=== PATIENT | female | born 1990 | race Asian ===

== ENCOUNTER → 2016-06-21 | Outpatient (CLI) | payer BC ==
[~2016-06-21] MED LIST: PRENTAB26 PO
[2016-06-21 14:28] LABS: URINE APPEARANCE CLEAR (CLEAR); URINE BILIRUBIN NEG (NEG); URINE COLOR YELLOW; URINE NITRITE NEG (NEG); URINE PH 6.5 (4.5-7.5); URINE SPECIFIC GRAVITY 1.014 (1.000-1.030); UROBILINOGEN NEG (NEG)
[2016-06-21 14:42] LABS: MANUAL MICROSCOPIC REQUIRED? NO; REVIEW REQ? NO
== END | disposition home or self-care (01) ==
LOC: C.LABSPEC 13:37
PROVIDERS: ATTEND Obstetrics & Gynecology
DX: Z34.01 Encounter for supervision of normal first pregnancy, first trimester (principal)

== ENCOUNTER → 2016-06-28 | Outpatient (CLI) | payer BC ==
[2016-06-28 17:34] LABS: BASO % 0.3 %; BASO ABS # 0.02 K/uL (0-0.2); COMPLETE YES; EOS % 1.3 %; HEMATOCRIT 34.9 % (37-47); IG% 0.3 %; LYMPH % 12.6 %; LYMPH ABS # 0.95 K/uL (1.2-3.4); MEAN CELL VOLUME 86.8 fL (80-100); MEAN CORPUSCULAR HEMOGLOBIN 29.1 pg (25-34); MEAN CORPUSCULAR HGB CONC 33.5 g/dl (32-36); MEAN PLATELET VOLUME 9.9 fL (7.4-10.4); MONO % 10.1 %; NEUT % 75.4 %; PLATELET COUNT 243 K/uL (130-400); RED BLOOD COUNT 4.02 M/uL (4.2-5.4); WHITE BLOOD COUNT 7.54 K/uL (4.8-10.8)
[2016-07-06 19:52] LABS: CHLAMYDIA TRACH RNA*** NOT DETECTED (NOT DETECTED); GC (NEIS GONORRHOEAE)RNA** NOT DETECTED (NOT DETECTED)
== END | disposition home or self-care (01) ==
LOC: C.LAB1850 15:32
PROVIDERS: ATTEND Obstetrics & Gynecology
DX: Z34.01 Encounter for supervision of normal first pregnancy, first trimester (principal)

== ENCOUNTER → 2016-08-24 | Outpatient (CLI) | payer BC ==
[2016-08-24 18:17] LABS: GTGD 50 Grams
== END | disposition home or self-care (01) ==
LOC: C.LAB1850 13:09
PROVIDERS: ATTEND Obstetrics & Gynecology
DX: Z34.03 Encounter for supervision of normal first pregnancy, third trimester (principal)

== ENCOUNTER → 2016-11-09 | Outpatient (CLI) | payer BC ==
[2016-11-09 14:37] LABS: HEMATOCRIT 33.5 % (37-47)
[2016-11-09 15:02] LABS: URINE APPEARANCE CLEAR (CLEAR); URINE BILIRUBIN NEG (NEG); URINE COLOR YELLOW; URINE NITRITE NEG (NEG); URINE PH 6.5 (4.5-7.5); URINE SPECIFIC GRAVITY 1.011 (1.000-1.030); UROBILINOGEN NEG (NEG)
[2016-11-09 15:11] LABS: MANUAL MICROSCOPIC REQUIRED? NO; REVIEW REQ? YES
[2016-11-09 15:26] LABS: URINE EPITHELIAL CELL AUTO 0-5 /lpf (0-5)
[2016-11-09 18:59] LABS: GTGD 50 Grams
== END | disposition home or self-care (01) ==
LOC: C.LAB1850 12:13
PROVIDERS: ATTEND Obstetrics & Gynecology
DX: Z34.02 Encounter for supervision of normal first pregnancy, second trimester (principal)

== ENCOUNTER 2017-01-19 12:14 | Inpatient (IN) | payer BC ==
[~2017-01-19] VITALS: Ht 157.5 cm; Wt 68.5 kg
[2017-01-19 12:57] LABS: BASO % 0.1 %; BASO ABS # 0.01 K/uL (0-0.2); COMPLETE YES; EOS % 1.6 %; HEMATOCRIT 36.1 % (37-47); IG% 0.4 %; LYMPH % 12.4 %; LYMPH ABS # 0.93 K/uL (1.2-3.4); MEAN CELL VOLUME 91.4 fL (80-100); MEAN CORPUSCULAR HEMOGLOBIN 30.1 pg (25-34); MEAN PLATELET VOLUME 10.4 fL (7.4-10.4); MONO % 9.6 %; NEUT % 75.9 %; PLATELET COUNT 193 K/uL (130-400); RED BLOOD COUNT 3.95 M/uL (4.2-5.4); WHITE BLOOD COUNT 7.49 K/uL (4.8-10.8)
[2017-01-19] MEDS ORDERED: LACTATED RINGER'S 1000ML 1,000 ML IV PRN (13:02)
[2017-01-19] MEDS ORDERED: NIFEdipine 10 MG CAP PO STA (13:05)
[2017-01-19] MEDS ORDERED: PATIENT'S ALLERGY INFO NEEDS ENTERED SCH (13:15)
[2017-01-19 13:20] LABS: ALB/GLOB RATIO 0.7 (0.9-2); ALKALINE PHOSPHATASE 127 U/L (45-117); ALT/SGPT 14 U/L (12-78); AST/SGOT 10 U/L (15-37); BLOOD UREA NITROGEN 8 mg/dl (7-18); BUN/CREATININE RATIO 20.9 (10-20); CALCIUM 8.9 mg/dl (8.5-10.1); CARBON DIOXIDE 19 mmol/L (21-32); CHLORIDE 109 mmol/L (98-107); CREATININE 0.38 mg/dl (0.60-1.20); GLUCOSE 89 mg/dl (70-99); POTASSIUM 3.9 mmol/L (3.5-5.1); SODIUM 139 mmol/L (136-145)
[2017-01-19 13:30] VITALS: Ht 157.5 cm; Wt 68.5 kg
[2017-01-19] MEDS ORDERED: PRENTAB26 PO (13:48)
[2017-01-19] MEDS ORDERED: LACTATED RINGER'S 1000ML 500 ML IV PRN ×2 (14:29→21:23)
[2017-01-19] MEDS ORDERED: OXYTOCIN 30 UNITS/500ML NSS IV PRN (14:30)
[2017-01-19] MEDS: LACTATED RINGER'S 1000ML 1,000 ML IV SCH ×2 (14:56→23:08)
[2017-01-19] MEDS ORDERED: FENTANYL 2MCG/ML ROPIV 1.25MG/ML 100ML BAG EPI ONE (20:15)
[2017-01-19] MEDS ORDERED: BUPIVACAINE 0.25% 30 ML VIAL ONE (20:15)
[2017-01-19] MEDS ORDERED: EpHEDrine SULFATE INJ 50 MG/ML AMP ONE (20:15)
[2017-01-19] MEDS ORDERED: FENTANYL CITRATE INJ 50 MCG/1 ML 2 ML VIAL ONE (20:16)
[2017-01-19] MEDS ORDERED: NALOXONE HCL INJ 1 MG in SODIUM CHLORIDE 0.9% 1000ML 1,000 ML IV PRN ×4 (21:23)
[2017-01-19] MEDS ORDERED: ONDANSETRON INJ 2 MG/ML 2 ML VIAL IV PRN (21:30)
[2017-01-19] MEDS ORDERED: DiphenhydrAMINE HCL 50 MG/ML VIAL IV PRN (21:30)
[2017-01-19] MEDS ORDERED: FENTANYL 2MCG/ML ROPIV 1.25MG/ML 100ML BAG EPI PRN (21:30)
[2017-01-19] MEDS ORDERED: EpHEDrine SULFATE INJ 50 MG/ML AMP IV PRN (21:30)
[2017-01-19] MEDS ORDERED: NALBUPHINE HCL INJ 10 MG/ML AMP IV PRN (21:30)
[2017-01-19] MEDS ORDERED: NALOXONE HCL INJ 0.4 MG/1 ML VIAL/CARP IV PRN (21:30)
[2017-01-19] MEDS ORDERED: METOCLOPRAMIDE HCL INJ 20 MG in SODIUM CHLORIDE 0.9% 50ML 50 ML IV PRN (21:30)
[2017-01-19] MEDS ORDERED: PROMETHAZINE HCL INJ 25 MG in SODIUM CHLORIDE 0.9% 50ML 50 ML IV PRN (21:30)
[2017-01-20] MEDS ORDERED: CARBOPROST TROMETHAMINE 250 MCG/ML AMP ONE (07:08)
[2017-01-20] MEDS ORDERED: LANOLIN OINT EXT PRN ×2 (07:30)
[2017-01-20] MEDS ORDERED: CARBOPROST TROMETHAMINE 250 MCG/ML AMP IM ONE (07:30)
[2017-01-20] MEDS ORDERED: OXYTOCIN 30 UNITS/500ML NSS IV PRN (07:30)
[2017-01-20] MEDS ORDERED: HYDROCORTISONE ACETATE 25 MG SUPP PR PRN (07:30)
[2017-01-20] MEDS ORDERED: DIPHTHERIA/TETANUS/PERTUSSIS 0.5 ML SYR/VIAL IM. ONE (07:30)
[2017-01-20] MEDS ORDERED: BENZOCAINE 20% AER SPR 82.5 GM CAN EXT PRN (07:30)
[2017-01-20] MEDS ORDERED: ACETAMINOPHEN 325 MG TAB PO PRN (07:30)
[2017-01-20] MEDS ORDERED: OXYCODONE/ACETAMINOPHEN 5-325 TAB PO PRN (07:30)
[2017-01-20] MEDS ORDERED: SUPERCREAM 0.870 % 15GM JAR EXT PRN (07:30)
[2017-01-20] MEDS: DOCUSATE SODIUM 100 MG CAP PO SCH ×2 (08:00→19:46)
--- NOTE | 2017-01-20 08:08 | DELIVERY SUMMARY ---
DATE OF OPERATION: 01/20/2017 PREOPERATIVE DIAGNOSES: 1. Intrauterine at 38 weeks. 2. Gestational hypertension without proteinuria. POSTOPERATIVE DIAGNOSES: 1. Intrauterine at 38 weeks. 2. Gestational hypertension without proteinuria. 3. hemorrhage. PROCEDURES: 1. Pitocin augmentation. 2. Epidural anesthesia. 3. Amniotomy. 4. Normal spontaneous vaginal delivery. 5. Third degree perineal laceration with repair. SURGEON: Ann Justice MD. ANESTHESIA: Epidural. ESTIMATED BLOOD LOSS: 700 mL. DESCRIPTION OF PROCEDURE: The patient presented to labor and delivery with admit pressure of 160s/100s. She was treated with oral nifedipine and her pressures came down but decision was made given gestational hypertension after 37 weeks to proceed with induction. An attempt to place Arriaga bulb was unsuccessful as it just kept slipping out. Originally she was 1 and now was 3 and 50%. Pitocin augmentation was initiated. She then underwent an epidural anesthesia and eventually an amniotomy for clear fluid. She progressed to complete, complete and +2 station. She pushed over 2 hours to deliver a viable female in JOS[place] MANUEL presentation. The nose and mouth were bulb suctioned and the rest of the was then delivered without difficulty. There was no nuchal cord. The cord was immediately clamped and cut. The was placed on the maternal abdomen. Cord blood was then obtained for collection. A third-degree perineal laceration was identified. The vagina and cervix were intact as well as the rectum. The third-degree perineal laceration was repaired with 2-0 and 3-0 Vicryl in normal standard fashion. Unfortunately, the patient continued to bleed and a manual exploration of the uterus was required with return of very little clot and the uterus was noted to be fairly firm. Then reexamination of the laceration found that it had partially broken down probably from my exploration of the uterus and so the incision was then reapproximated with 3-0 Vicryl. Once this was performed, then hemostasis was noted to be excellent. I suspect that most of the bleeding was from the laceration. Estimated blood loss is 700 mL. Apgars were 8 and 9. Mother and the baby doing well at the end of the delivery. I attest to the content of the Intraoperative Record and any orders documented therein. Any exception s are noted below.
--- NOTE | 2017-01-20 09:00 | Anesthesia Procedure Note ---
Anesthesia Epidural Removal Nt Date & Time Jan 20, 2017 at 09:00 Vital Signs Pain Intensity: 0.0 Notes Mental Status: alert / awake / arousable, participated in evaluation Nausea / Vomiting: adequately controlled Pain: adequately controlled Airway Patency, RR, SpO2: stable & adequate BP & HR: stable & adequate Hydration State: stable & adequate Neuraxial Anesthesia: was administered Anesthetic Complications: no major complications apparent, pt satisfied with anesthetic care Epidural: removed without complications, with tip intact
[2017-01-20] MEDS: IBUPROFEN 600 MG TAB PO PRN (09:20)
[2017-01-20] MEDS: PRENATAL VITAMIN TAB PO SCH (09:20)
[2017-01-20 10:30] VITALS: BP 126/81; PULSE 89; TEMP 37
[2017-01-20 12:00] VITALS: BP 122/87; PULSE 96; TEMP 37
[2017-01-20] MEDS ORDERED: LOPERAMIDE LIQUID 1MG/7.5ML 120ML BTL PO PRN (13:30)
[2017-01-20 15:30] VITALS: BP 123/85; PULSE 90; TEMP 36.6
[2017-01-20 19:30] VITALS: BP 123/83; PULSE 99; TEMP 37.2; O2SAT 99
[2017-01-21 00:20] VITALS: BP 120/80; PULSE 87; TEMP 36.9; O2SAT 98
[2017-01-21 03:35] VITALS: BP 120/60; PULSE 80; TEMP 36.8; O2SAT 98
--- NOTE | 2017-01-21 07:44 | Progress Note ---
Subjective Jan 21, 2017. Subjective conversation w/ patient, physical exam, chart review Ambulation: ambulating normally Diet Tolerance: Regular Diet Lochia: Small Feeding Type: Breast Feeding Objective Vital Signs Date Time Temp Pulse Resp B/P (MAP) Pulse Ox O2 Delivery O2 Flow Rate FiO2 01/21/17 03:35 36.8 80 16 120/60 (80) 98 Room Air 01/21/17 00:20 98 Room Air 01/21/17 00:20 36.9 87 16 120/80 (93) 98 Room Air 01/20/17 19:30 37.2 99 20 123/83 (96) 99 Room Air 01/20/17 15:30 36.6 90 20 123/85 (98) Room Air 01/20/17 15:30 Room Air 01/20/17 12:00 37.0 96 18 122/87 (99) Room Air 01/20/17 10:30 37.0 89 18 126/81 (96) Room Air 01/20/17 10:30 Room Air Physical Exam General Appearance: WELL-APPEARING Abdomen: non tender Fundus: Firm Extremities: non-tender Laboratory Results Last 24 Hours Test 01/21/17 06:38 Assessment and Plan Post- Day#: 1 Continue Routine Care: continue current care
[2017-01-21 07:50] VITALS: BP 119/69; PULSE 79; TEMP 36.6; O2SAT 97
[2017-01-21] MEDS: PRENATAL VITAMIN TAB PO SCH (08:34)
[2017-01-21] MEDS: IBUPROFEN 600 MG TAB PO PRN (08:34)
[2017-01-21] MEDS: DOCUSATE SODIUM 100 MG CAP PO SCH ×2 (08:41→19:40)
[2017-01-21 09:23] LABS: HEMATOCRIT 25.3 % (37-47)
[2017-01-21 15:40] VITALS: BP 128/83; PULSE 90; TEMP 36.5; O2SAT 98
[2017-01-22 00:15] VITALS: BP 121/77; PULSE 96; TEMP 37; O2SAT 97
[2017-01-22] MEDS: IBUPROFEN 600 MG TAB PO PRN (00:36)
[2017-01-22 07:45] VITALS: BP 130/92; PULSE 75; TEMP 36.6; O2SAT 99
--- NOTE | 2017-01-22 08:12 | Discharge Instructions ---
Discharge Instructions Date of Service Jan 22, 2017. Admission Reason for Admission: Gestational Hypertension Discharge Discharge Diagnosis / Problem: vaginal delivery Discharge Goals Goal(s): Routine recovery after delivery Activity Recommendations Activity Limitations: per Instructions/Follow-up section . Instructions / Follow-Up Instructions / Follow-Up ACTIVITY RECOMMENDATIONS: * Gradual return to full activity over the next 2-3 weeks. * No lifting - nothing heavier than baby over the next 2-3 weeks. * Do not engage in vigorous exercise, sexual activity or sports until cleared by your physician. * Do not drive or operate any motorized equipment until cleared by your physician. * You may shower/bathe daily. MEDICATIONS: For discomfort or pain, you may use Acetaminophen (Tylenol), Ibuprofen (Advil), or Naproxen (Aleve) following the package directions. For constipation you may use Colace following the package directions. BREAST CARE: If you are not breast feeding: * Wear a supportive bra 24 hours a day for one to two weeks. * Avoid stimulating your breasts and nipples as much as possible during the first few weeks after delivery. * When taking a shower, have the warm water hit your back, not breasts. * When your breasts feel full, apply ice packs. Usually three to four times a day helps ease the discomfort. * Take a mild pain medication (Tylenol / Motrin) when you are uncomfortable. If breast feeding: * Use breast milk to lubricate nipples. Lansinoh cream may be used for sore nipples. You do not need to remove cream prior to breast feeding. If using a different brand of cream, check the label for directions regarding removal of cream prior to nursing. * Wear a supportive bra. * If having problems with breasts or breast feeding, call a mobile sales consultant or your health care provider. EPISIOTOMY CARE: After delivery, if you have an episiotomy (stitches), the following steps will ease discomfort and aid healing. * For the first 24 hours after delivery, place ice packs next to your episiotomy to help reduce swelling. * After the first 24 hour-period, sitz baths, either portable or in the tub, are suggested. A shower with a shower arm sprayed over the episiotomy may be comforting. * Marnie care should be done after each voiding and bowel movement. Squirt warm water from a plastic bottle over the perineum (region of the body between the anus and urinary opening) and pat dry. * Use Dermoplast to ease discomfort. Shake container. [place] directly over the episiotomy. Place a Tucks on a clean sanitary pad next to your episiotomy. SPECIAL CARE INSTRUCTIONS: When you are discharged from the hospital, it is important for you to follow the instructions listed below: * During the first week at home, you should be able to care for yourself and your baby. In addition, the usual light household activities are encouraged. * Limit your activities to the way you feel. Do not try to clean the house or move furniture. Be sensible. * If you actively engage in sports and have done so up until the time of your delivery, you may resume these activities as soon as you feel able. This may take up to one month or even longer. Use good judgment. * Continue to take your vitamins for at least six weeks after the of your baby. * Your diet need not be limited unless you were on a special diet before your delivery. Breast-feeding mothers need around 2500 calories per day and at least 64-80 ounces of fluid per day (8 to 10 glasses). * You should eat foods from the four major food groups. Crash diets or fad diets are to be avoided. Eating lean meats, fresh fruits and vegetables, low-fat dairy products, high fiber foods and a regular exercise program, will help you get back to your pre- weight without putting your health at risk. * Constipation is sometimes a problem after delivery. Take a mild laxative as needed. If breast feeding, Milk of Magnesia is acceptable to use. You may use a suppository or Fleets enema if no episiotomy. * A daily shower or tub bath is suggested. Be sure to thoroughly and gently dry the perineum. * A bloody vaginal discharge will usually continue until around four weeks post . A small amount of bleeding may continue for as long as six weeks. Vaginal discharge changes from the bright red bleeding after delivery to pink then brownish and finally yellowish-pink before becoming white and disappearing. * Bleeding may increase with activity. Your first period may come in 4-8 weeks. If you are breast feeding, your period may be delayed even longer. * [place] (sex) can begin whenever both you and your partner feel comfortable and do not have any form of genital infection. It is recommended that you wait at least six weeks for internal and external healing to occur. If you have questions, please talk to your health care practitioner. A condom should be used to prevent infection and . * Foreplay, gentle intercourse and lubrication is very important the first several times to prevent pain. A water-based lubricant such as K-Y jelly or Astroglide may be used. * If you have RH negative blood and your baby is RH positive, you will receive RHOGAM by injection prior to discharge. The nurse will give you a card to keep with you that has the date and place that you received RHOGAM after delivery. * During your care, you had a Rubella screen done to check for the presence of rubella antibodies in your blood. If your test was negative, you will receive a Rubella vaccine prior to discharge. This vaccine may cause a fever, soreness at the injection site and flu-like symptoms. If these symptoms persist, notify your health care practitioner. is not advised for one month after a Rubella vaccine. * Verbalizes understanding of car seat law as reviewed with patient nursing. * Car Seat hand-out given and reviewed with patient by nursing. * Shaken baby information reviewed with patient by nursing. Call you doctor if: * Heavy bleeding (saturating several pads an hour) or passing clots the size of your fist. * A fever >101 degrees F (38.3 degrees C) on two occasions four hours apart and /or chills. * Unusual pain in the pelvic or vaginal areas. * "Baby Blues" lasting longer than two weeks. If you have any questions or concerns, call your health care practitioner at . FOLLOW UP VISIT: * Please call the office at to schedule a 6 week examination. It is important you keep this appointment. It is important for you to make arrangements for either yearly or twice yearly check-ups thereafter. Current Hospital Diet Patient's current hospital diet: Regular OB Diet Discharge Diet Recommended Diet: Regular Diet Pending Studies Studies pending at discharge: no Medical Emergencies . Who to Call and When: Medical Emergencies: If at any time you feel your situation is an emergency, please call 911 immediately. . Non-Emergent Contact Non-Emergency issues call your: Primary Care Provider . . "Provider Documentation" section prepared by Mary Sorensen. . VTE Core Measure Inpt VTE Proph given/why not?: Treatment not indicated
--- NOTE | 2017-01-22 08:44 | Progress Note ---
Subjective Jan 22, 2017. Subjective conversation w/ patient, physical exam Ambulation: ambulating normally Voiding: no voiding problems Passing Gas: Yes Diet Tolerance: Regular Diet Lochia: Moderate Feeding Type: Breast Feeding (Switching to bottle as she has had difficulty with baby latching) Review of Systems Constitutional: No fever, No chills Respiratory: No cough Cardiac: No chest pain Abdomen: No nausea, No vomiting Objective Vital Signs Date Time Temp Pulse Resp B/P (MAP) Pulse Ox O2 Delivery O2 Flow Rate FiO2 01/22/17 00:15 97 Room Air 01/22/17 00:15 37.0 96 20 121/77 (92) 97 Room Air 01/21/17 15:40 36.5 90 20 128/83 (98) 98 Room Air 01/21/17 15:40 98 Room Air Physical Exam General Appearance: WELL-APPEARING, NO APPARENT DISTRESS Respiratory/Chest: no respiratory distress, no accessory muscle use Cardiovascular: no edema Abdomen: non tender, soft Fundus: Firm Extremities: no calf tenderness Assessment and Plan Post- Day#: 2 Continue Routine Care: Doing well, discharge instructions reviewed.
[2017-01-22] MEDS: PRENATAL VITAMIN TAB PO SCH (08:50)
[2017-01-22] MEDS: DOCUSATE SODIUM 100 MG CAP PO SCH (08:50)
[2017-01-22 13:00] VITALS: BP_DIAS 92; PULSE 75; TEMP 36.6
== END 2017-01-22 13:30 | disposition home or self-care (01) | DRG 774 ==
LOC: C.OPB 12:14 → C.LD 12:15 → C.OPB 13:04 → C.OBG 01-20 10:39
PROVIDERS: ADMIT Obstetrics & Gynecology; ATTEND Obstetrics & Gynecology
PROC: 0DQR0ZZ Repair Anal Sphincter, Open Approach (ICD-10-PCS; principal; 2017-01-20)
PROC: 10E0XZZ Delivery of Products of Conception, External Approach (ICD-10-PCS; principal; 2017-01-20)
DX: O13.4 Gestational [pregnancy-induced] hypertension without significant proteinuria, complicating childbirth (principal); O70.20 Third degree perineal laceration during delivery, unspecified; O72.1 Other immediate postpartum hemorrhage; Z37.0 Single live birth; Z3A.38 38 weeks gestation of pregnancy

== ENCOUNTER → 2017-03-07 | Outpatient (CLI) | payer BC | END | disposition home or self-care (01) | LOC: C.PAPS 09:30 | PROVIDERS: ATTEND Obstetrics & Gynecology | DX: Z12.4 Encounter for screening for malignant neoplasm of cervix (principal) ==

== ENCOUNTER → 2017-03-07 | Outpatient (CLI) | payer BC | END | disposition home or self-care (01) | LOC: C.LAB1850 15:05 | PROVIDERS: ATTEND Obstetrics & Gynecology | DX: E01.0 Iodine-deficiency related diffuse (endemic) goiter (principal) ==

== ENCOUNTER → 2017-03-13 | Outpatient (CLI) | payer BC ==
--- NOTE | 2017-03-13 09:08 | DIAGNOSTIC IMAGING REPORT ---
Thyroid ultrasonography CLINICAL HISTORY: THYROID NODULE COMPARISON STUDY: December 08, 2015 FINDINGS: The right of the thyroid measures 7 x 3.8 x 4.2 cm. There is a large lower pole relatively isoechoic nodule measuring 51 x 42 x 37 mm. This contains a shadowing calcification. The left lobe measures 5 x 1.6 x 1.1 cm. No left lobe nodules are visualized. IMPRESSION: Minimal interval increase in the size of the dominant predominantly solid lower pole right lobe nodule currently measuring 51 x 42 x 37 mm. Electronically signed by: Reid Devine M.D. 03/13/2017 9:06 AM Dictated Date/Time: 03/13/2017 9:04 AM
== END | disposition home or self-care (01) ==
LOC: C.ULTR 08:43
PROVIDERS: ATTEND Family Medicine
DX: E04.1 Nontoxic single thyroid nodule (principal)

== ENCOUNTER 2019-05-10 20:31 | Inpatient (IN) ==
[2019-05-10] MEDS ORDERED: OXYTOCIN 30 UNITS/500 ML BAG IV PRN ×2 (21:18→21:48)
--- NOTE | 2019-05-10 21:22 | History & Physical Report ---
Date of Service May 10, 2019 Assessment & Plan (1) SROM (spontaneous rupture of membranes): offered expectant management with pit at 6 hours or pit now. Either acceptable. fetus category one. Anticipate . Her pressures are a little elevated , so will check labs. (2) Hypothyroidism complicating : continue meds. History of Present Illness Chief Complaint: leaking fluid Primary Care Provider: Gopi Krissy Espinoza Patient is a 28yowf with iup at 37 6/7 weeks who called complaining of lof at 7pm. clear. no vb. no real contractions. +fm. Her prior complicated by ghtn and has been on asa. hx of graves disease with thyroid ablation. Has had normal growth scans. Baby has been followed for goiter and not showing any signs. labs--O+/ab-/ri/rprnr/hepb-/hiv-/gc/ct-/ afp neg/ panorama low risk male/gtt x 2 neg/gbs neg Allergies Allergy/AdvReac Type Severity Reaction Status Date / Time shrimp Allergy Intermediate HIVES Verified 05/10/19 21:07 shellfish derived Allergy Rash Verified 05/10/19 21:07 Home Medications Home Medications Medication Instructions Recorded Confirmed Type levothyroxine 125 mcg tablet 125 mcg PO DAILY #30 tab 01/22/19 05/10/19 Rx aspirin 81 mg tablet,delayed 81 mg PO DAILY 02/05/19 05/10/19 History release vit-iron fum-folic ac 1 tab PO DAILY 05/10/19 05/10/19 History [ Vitamin] Patient History Medical History (Updated 05/10/19 @ 21:27 by Ann Justice MD, FACOG) Graves disease Varicella Surgical History S/P thyroidectomy radioactive iodine ablation S/P wisdom tooth extraction Social History Preferred Language: Italian Director Bioinformatics Required: No Beliefs That Will Affect Care: None marital status: marital status details: Amalia Vasques (33) [phone] Current Living Situation: Family Current Living Situation Comment: and child live with her sister and family current occupational status: employed current occupation: Host @ [employer] Other Information That Helps Us Care for You: No Feels Safe at Home: Yes Safety Concerns: Feels Safe At This Time Smoking Status: Never smoker Hx Alcohol Use: No Hx Substance Use: No OB History g1--01/20, /induction for ghtn/ 5#11oz [employer] History no stds, no abnl paps Review of Systems All systems reviewed & are unremarkable except as noted in HPI & below Physical Exam Constitutional: WD/WN, vitals as above Gastrointestinal (Abdomen): aoft, gravid , nt Psychiatric: A+Ox3, euthymic affect Genitourinary: sse--grossly ruptured sve--3.5/50/-2/soft/mid toco--rare efm--135 with mod variability, accels to 150s, no decels Results & Data Vital Signs (Past 12 Hours) Vital Signs Temp Pulse Resp BP 05/10/19 20:44 82 143/96 H 05/10/19 20:37 36.9 C 82 20 143/96 H Code Status & VTE Plan VTE Prophylaxis Plan VTE Prophylaxis will be ordered: No Coding Level of Care Code None Diagnoses SROM (spontaneous rupture of membranes) Hypothyroidism complicating O99.280; E03.9
[2019-05-10] MEDS: LACTATED RINGER'S 1,000 ML IV PRN (21:45)
[2019-05-10 21:47] LABS: Hematocrit (blood only) 37.7 % (37-47); Hemoglobin 12.8 g/dL (12.0-16.0); Mean Corpuscular Hemoglobin 31.2 pg (25-34); Mean Platelet Volume 11.1 fL (7.4-10.4); Platelet Count 190 K/uL (130-400); RDW Coefficient of Variation 13.4 % (11.5-14.5); RDW Standard Deviation 44.3 fL (36.4-46.3); White Blood Count 8.35 K/uL (4.8-10.8)
[2019-05-10 22:04] LABS: Alanine Aminotransferase 17 U/L (12-78); Albumin Level 2.8 gm/dl (3.4-5.0); Aspartate Aminotransferase 14 U/L (15-37); BUN Creatinine Ratio 20.6 (10-20); Blood Urea Nitrogen 9 mg/dl (7-18); Calcium 8.5 mg/dl (8.5-10.1); Carbon Dioxide 19 mmol/L (21-32); Chloride 110 mmol/L (98-107); Creatinine Clr Calc Pharmacy 273.2 ml/min; Est GFR (African American) > 150.0; Est GFR (Non-African American) 137.4; Glucose 106 mg/dl (70-99); Potassium 3.3 mmol/L (3.5-5.1); Sodium 138 mmol/L (136-145)
[2019-05-10 22:07] LABS: Albumin Globulin Ratio 0.6 (0.9-2); Alkaline Phosphatase 153 U/L (45-117); Bilirubin,Total 0.3 mg/dl (0.2-1); Globulin 4.6 gm/dl (2.5-4.0); Total Protein 7.4 gm/dl (6.4-8.2)
[2019-05-10] MEDS ORDERED: fentaNYL citrate 100 MCG/2 ML VIAL ONE (23:54)
[2019-05-10] MEDS ORDERED: ePHEDrine sulfate 50 MG/ML AMP ONE (23:54)
[2019-05-10] MEDS ORDERED: fentaNYL 2MCG/ML ROPIV 1.25MG/ML 100 ML BAG EPI ONE (23:55)
[2019-05-10] MEDS ORDERED: BUPIVACAINE 0.25% 30 ML VIAL ONE (23:55)
[2019-05-11] MEDS: LACTATED RINGER'S 1,000 ML IV PRN (00:21)
[2019-05-11] MEDS ORDERED: NALOXONE HCL 1 MG in SODIUM CHLORIDE 0.9% 1000ML 1,000 ML IV PRN (00:42)
[2019-05-11] MEDS ORDERED: DiphenhydrAMINE HCL 50 MG/ML VIAL IV PRN (00:42)
[2019-05-11] MEDS ORDERED: PROMETHAZINE HCL 6.25 MG in SODIUM CHLORIDE 0.9% 50 ML IV PRN (00:42)
[2019-05-11] MEDS ORDERED: NALOXONE HCL 0.4 MG/1 ML VIAL/CARP IV PRN (00:42)
[2019-05-11] MEDS ORDERED: NALBUPHINE HCL INJ 10 MG/ML AMP IV PRN (00:42)
[2019-05-11] MEDS ORDERED: ONDANSETRON INJ 2 MG/ML 2 ML VIAL IV PRN (00:42)
[2019-05-11] MEDS ORDERED: ePHEDrine sulfate 50 MG/ML AMP IV PRN (00:42)
[2019-05-11] MEDS ORDERED: fentaNYL 2MCG/ML ROPIV 1.25MG/ML 100 ML BAG EPI PRN (00:42)
--- NOTE | 2019-05-11 00:45 | Anesthesiology Consultation ---
Date of Service May 11, 2019 Hypothyroidism Gestational HTN Assessment & Plan Chart Review Chart Review: Patient NOT seen in Pre Admission Testing and Acceptable Risk for Labor Epidural Consults Requested none ASA ASA2 Proposed Anesthesia Anesthesia Type: Labor Epidural Risk / Benefits Reviewed With: PT / POA / Parent / Guardian, Accepts Plan and I nformed Consent Obtained History Height/Weight Height: 5 ft 2 in Weight: 149 kg Allergies Allergy/AdvReac Type Severity Reaction Status Date / Time shrimp Allergy Intermediate HIVES Verified 05/10/19 21:07 shellfish derived Allergy Rash Verified 05/10/19 21:07 Medications Home Medications Medication Instructions Recorded Confirmed Last Taken levothyroxine 125 mcg tablet 125 mcg PO DAILY #30 tab 01/22/19 05/10/19 Unknown aspirin 81 mg tablet,delayed 81 mg PO DAILY 02/05/19 05/10/19 05/10/19 08:00 release vit-iron fum-folic ac 1 tab PO DAILY 05/10/19 05/10/19 Unknown [ Vitamin] Active Medications Generic Name Dose Route Start Last Admin Trade Name Lyudmila PRN Reason Stop Dose Admin Lactated Ringer's 1,000 mls @ 125 mls/hr 05/10/19 21:18 05/11/19 00:21 Lr IV 05/12/19 21:17 125 mls/hr .Q8H PRN Administration L&D Protocol Protocol Oxytocin 30 units in 500 mls @ 6 mls/hr 05/10/19 21:48 05/10/19 23:30 Pitocin IV 05/12/19 21:47 0.36 units/hr .Q24H PRN 6 mls/hr Labor Induction/Augmentation Titration Protocol 0.36 UNITS/HR NPO Date Last Intake of Fluids: 05/10/19 Time Last Intake of Fluids: 23:30 Date Last Intake of Solids: 05/10/19 Time Last Intake of Solids: 19:00 Past Medical History Medical History Graves disease Varicella Exercise / Class Metabolic Activity II 4-5 Yardwork/Stairs/Walk up hill Past Family History Family History Grandfather (Paternal) Hypertension Grandmother (Paternal) Heart abnormality Denies family history of Sudden of family member Past Surgical History Surgical History S/P thyroidectomy radioactive iodine ablation S/P wisdom tooth extraction Past Anesthesia History No Hx of Anesthesia Complications and No Family Hx of Anesthesia Complications History of PONV No Hx of PONV and No Hx of Motion Sickness Social History Smoking Status: Never smoker Hx Alcohol Use: No Hx Substance Use: No substance use type: does not use Physical Exam Vital Signs Last Vital Signs Temp 36.5 C 05/11/19 00:05 Pulse 74 05/11/19 00:40 Resp 18 05/11/19 00:05 BP 169/111 H 05/11/19 00:40 Pulse Ox 97 05/11/19 00:40 ENMT Mouth: no dentition abnormality Thyromental Distance: > or= 3.5 Finger Breadths Mallampati Class: II Neck normal visual inspection Respiratory normal respiratory effort Auscultation: lungs clear to auscultation bilaterally Cardiovascular Rate/Rhythm: regular rate and regular rhythm Psychiatric Orientation: alert Testing Laboratory Results 05/10/19 21:36 05/10/19 21:36
--- NOTE | 2019-05-11 02:18 | Labor Progress Brief Note ---
Date of Service May 11, 2019 Subjective Comfortable with epidural Assessment & Plan (1) SROM (spontaneous rupture of membranes): fetus reassuring category two , iupc to run pitocin. Pressures borderline but no s/s pet. Will continue to monitor closely. Physical Exam Constitutional: WD/WN, vitals as above Psychiatric: A+Ox3, euthymic affect Genitourinary: cx--stretchy 6/90/-2 toco--q3min, iupc placed efm--130s with mod variability, occasional variable, occasional early Results & Data Vital Signs (Past 12 Hours) Vital Signs Temp Pulse Resp BP Pulse Ox 05/11/19 02:12 73 133/95 05/11/19 02:10 68 99 05/11/19 02:05 77 97 05/11/19 02:00 79 98 05/11/19 01:58 76 154/93 H 05/11/19 01:55 80 98 05/11/19 01:50 83 97 05/11/19 01:45 76 97 05/11/19 01:42 74 184/105 H 05/11/19 01:40 77 97 05/11/19 01:35 75 97 05/11/19 01:30 76 97 05/11/19 01:27 71 155/100 H 05/11/19 01:25 75 97 05/11/19 01:20 75 97 05/11/19 01:15 72 97 05/11/19 01:13 72 189/118 H 05/11/19 01:10 75 100 05/11/19 01:05 73 97 05/11/19 01:04 36.5 C 16 05/11/19 01:00 82 99 05/11/19 00:57 71 159/96 H 05/11/19 00:55 72 98 05/11/19 00:50 71 97 05/11/19 00:45 69 98 05/11/19 00:40 74 169/111 H 97 05/11/19 00:38 71 161/100 H 05/11/19 00:36 70 173/110 H 05/11/19 00:35 73 98 05/11/19 00:34 64 173/112 H 05/11/19 00:30 77 98 05/11/19 00:25 73 98 05/11/19 00:20 76 97 05/11/19 00:15 82 98 05/11/19 00:10 74 98 05/11/19 00:05 36.5 C 72 18 189/114 H 98 05/11/19 00:00 78 98 05/10/19 23:55 77 99 05/10/19 23:50 78 98 05/10/19 23:45 75 98 05/10/19 23:40 71 97 05/10/19 22:56 78 153/98 H 05/10/19 22:15 80 139/91 05/10/19 22:13 86 156/112 H 05/10/19 22:00 36.6 C 18 05/10/19 21:21 85 159/95 H 05/10/19 21:19 91 H 180/112 H 05/10/19 20:44 82 143/96 H 05/10/19 20:37 36.9 C 82 20 143/96 H Coding Level of Care Code None Diagnoses SROM (spontaneous rupture of membranes)
[2019-05-11] MEDS ORDERED: Nursing to Pharmacy Communication ONE ×2 (03:27→08:50)
[2019-05-11] MEDS ORDERED: ACETAMINOPHEN 325 MG TAB PO PRN (05:26)
[2019-05-11] MEDS ORDERED: ACETAMINOPHEN W/CODEINE #3 1 TAB PO PRN (05:26)
--- NOTE | 2019-05-11 05:33 | Delivery Summary ---
Vaginal Delivery Summary Date of Service May 11, 2019 Vaginal Delivery Summary Pre-operative Diagnosis: at 37 weeks srom Post-operative Diagnosis: same Procedure: pitocin augmentation epidural third degree laceration and repair EBL: 400cc Anesthesia: epidural Procedure: The patient pushed for about 30 minutes to deliver a viable male infant in [place] position. The nose and mouth were bulb suctioned on the perineum and a tight nuchal cord x 1 was clamped and cut on the perineum. The rest of the was then delivered without difficulty. The baby was vigorous. The nose and mouth were again bulb suctioned and the infant was placed in the [facility] abdomen for drying and attention. Cord was clamped and cut at one minute of life. Cord blood and segment obtained. Placenta delivered spontaneous, intact with a three vessel cord. Cervix/sulci/rectum were intact. A third degree perineal laceration was repaired in the normal standard fashion with 2-0 and 3-0 vicryl. Hemostasis obtained with dilute pitocin and fundal massage. Apgars were 8/9. Mother and baby doing well at the end of the delivery.
[2019-05-11] MEDS ORDERED: SUPERCREAM 0.870% 15 GM JAR EXT PRN (06:33)
[2019-05-11] MEDS ORDERED: DIPHTHERIA/TETANUS/PERTUSSIS 0.5 ML SYR/VIAL IM ONE (06:33)
[2019-05-11] MEDS ORDERED: bisacodyL 10 MG SUPP PR PRN (06:33)
[2019-05-11] MEDS ORDERED: HYDROCORTISONE ACETATE 25 MG SUPP PR PRN (06:33)
[2019-05-11] MEDS ORDERED: BENZOCAINE 20% AER SPR 82.5 GM CAN EXT PRN (06:33)
[2019-05-11] MEDS ORDERED: OXYTOCIN 30 UNITS/500 ML BAG IV PRN (06:33)
--- NOTE | 2019-05-11 08:18 | Anesthesia Procedure Note ---
Date of Service May 11, 2019 Anesthesia Post Epidural Note Vital Signs Vital Signs: Temp Pulse Resp BP Pulse Ox 36.8 C 81 20 126/77 98 05/11/19 07:04 05/11/19 08:04 05/11/19 07:04 05/11/19 08:04 05/11/19 05:15 Pain Intensity Abdomen: Pain Intensity: 5 Notes Mental Status: alert / awake / arousable Nausea / Vomiting: adequately controlled Pain: adequately controlled Airway Patency, RR, SpO2: stable & adequate BP & HR: stable & adequate Hydration State: stable & adequate Neuraxial Anesthesia: was administered and sensory block is resolving Anesthetic Complications: no major complications apparent Epidural: Removed without complications and With tip intact
[2019-05-11] MEDS: PRENATAL VITAMIN 1 TAB PO SCH (08:43)
[2019-05-11] MEDS: DOCUSATE SODIUM 100 MG CAP PO SCH ×2 (08:43→21:02)
[2019-05-11] MEDS: IBUPROFEN 600 MG TAB PO PRN ×2 (13:08→21:03)
[2019-05-12] MEDS ORDERED: LEVOTHYROXINE SODIUM 125 MCG TABLET PO SCH (06:30)
[2019-05-12 06:37] LABS: Hematocrit (blood only) 34.3 % (37-47); Hemoglobin 11.4 g/dL (12.0-16.0)
--- NOTE | 2019-05-12 08:04 | Obstetrical Progress Note ---
Date of Service May 12, 2019 Assessment & Plan (1) Encounter for supervision of normal in multigravida, antepartum: - pt doing well - several mildly elevated BP's - h/o of gestational hypertension - pt desires d/c - instructions given - will f/u in 1 week for PPA visit for BP check Subjective Ambulation: ambulating normally Voiding: no voiding problems Feeding Type:: bottle feeding Physical Exam Constitutional WD/WN, vitals as above Gastrointestinal (Abdomen) Fundus firm below umbilicus Musculoskeletal No deep calf tenderness Results & Data Vital Signs (Past 12 Hours) Vital Signs Temp Pulse Pulse Resp BP 05/12/19 07:42 97.9 F 74 20 136/85 05/12/19 04:40 97.7 F 69 16 131/87 05/11/19 23:20 98.4 F 71 18 132/86 05/11/19 19:20 98.4 F 79 16 147/89 H
[2019-05-12] MEDS: DOCUSATE SODIUM 100 MG CAP PO SCH (08:10)
[2019-05-12] MEDS: PRENATAL VITAMIN 1 TAB PO SCH (08:10)
[2019-05-12] MEDS ORDERED: bisacodyL 5 MG TABEC PO SCH (20:00)
== END 2019-05-12 14:40 | disposition home or self-care (01) | DRG 768 ==
LOC: OPB 20:31 → 4S1 20:32 → 4S2 05-11 08:56